=== PATIENT | female | born 1985 | race Caucasian/White ===

== ENCOUNTER → 2022-08-07 11:55 | Outpatient (BNVA) | payer OTHER, SELFPAY | PROVIDERS: PCP Family Medicine; Visit Provider Family Medicine | DX: R87.620 Atypical squamous cells of undetermined significance on cytologic smear of vagina (ASC-US) (principal); Z11.3 Encounter for screening for infections with a predominantly sexual mode of transmission; R23.2 Flushing; Z63.0 Problems in relationship with spouse or partner; Z00.00 Encounter for general adult medical examination without abnormal findings | CPT/HCPCS: 84443; 86592; 87491; 87591; 87624; 87661; 87806 ==

== ENCOUNTER → 2022-09-05 14:11 | Outpatient (BNVA) | payer OTHER, SELFPAY | PROVIDERS: PCP Family Medicine; Visit Provider Family Medicine | DX: R23.2 Flushing (principal) | CPT/HCPCS: 82670; 83001 ==

== ENCOUNTER → 2024-06-23 09:36 | Outpatient (BNVA) | payer OTHER, SELFPAY | PROVIDERS: PCP Family Medicine; Visit Provider Family Medicine | DX: R10.11 Right upper quadrant pain (principal) | CPT/HCPCS: 80053; 83690; 85025 ==

== ENCOUNTER → 2024-06-27 08:20 | Outpatient (BNVA) | payer OTHER, SELFPAY | PROVIDERS: PCP Family Medicine; Visit Provider Family Medicine | DX: R10.9 Unspecified abdominal pain (principal) | CPT/HCPCS: 86003; 86008 ==

== ENCOUNTER → 2024-07-07 16:23 | Outpatient (BNVA) | payer OTHER, SELFPAY | PROVIDERS: PCP Family Medicine; Visit Provider Family Medicine | DX: Z91.018 Allergy to other foods (principal); M25.50 Pain in unspecified joint | CPT/HCPCS: 86618; 86666; 86757 ==

== ENCOUNTER 2024-07-15 07:11 | Outpatient (CLI) | payer OTHER, SELFPAY ==
--- NOTE | 2024-07-15 07:45 | US_ITS ---
WS: [id number] RIGHT UPPER QUADRANT ULTRASOUND HISTORY: ruq pain COMPARISON: None available. Liver: 16.1 cm in length. Top normal size liver. Mild coarse echotexture throughout the liver. Hepati c steatosis with no mass identified. Portal Vein: Normal hepatopetal flow with monophasic waveform. Gallbladder: Normally distended gallbladder with no stones or wall thickening. CBD: 0.4 cm Pancreas: Poorly visualized. Right kidney: 10.3 cm in length. Normal size and echogenicity. No hydronephrosis or mass. Aorta and IVC: Unremarkable abdominal aorta and IVC. No ascites. US/US abdomen limited [id number] IMPRESSION: 1. Normal gallbladder. 2. Top normal size liver with mild hepatic steatosis. 3. Pancreas not visualized.
== END 2024-07-15 07:12 | disposition home or self-care (01) ==
LOC: RAD 07:12
PROVIDERS: PCP Family Medicine; Visit Provider Family Medicine
DX: R10.11 Right upper quadrant pain (principal)
CPT/HCPCS: 76705

== ENCOUNTER → 2024-12-15 14:44 | Outpatient (BNVA) | payer OTHER, SELFPAY | PROVIDERS: PCP Family Medicine; Visit Provider Family Medicine | DX: L65.9 Nonscarring hair loss, unspecified (principal) | CPT/HCPCS: 80053; 82306; 82607; 83735; 84443; 84630; 85025 ==